=== PATIENT | male | born 1985 | race Hispanic/Latino ===

== ENCOUNTER 2018-01-17 14:41 | Emergency (ER) | payer OTHER ==
[2018-01-17] MEDS ORDERED: Emtricitabine-Tenofovir 200 mg-300 mg Tab PO STA (14:43)
--- NOTE | 2018-01-17 14:51 | ED PDOC ---
Arrival/HPI - General Time Seen by Provider: 01/17/18 14:42 Historian: Patient - History of Present Illness Narrative History of Present Illness (Text): 01/17/18 15:32 32 yo M presents to the ER for needlestick injury to the L 2nd digit which occurred at 12pm today. 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 Reports he irrigated with wound with peroxide, there was minimal bleeding. Otherwise denies any numbness, decrease in ROM, or any other injury. Patient has no other complaints. Past Medical History - Infectious Disease Hx of Infectious Diseases: None - Psychiatric Hx Substance Use: No Family/Social History Family/Social History: Unknown Family HX Smoking Status: Never Smoked Hx Alcohol Use: No Hx Substance Use: No Allergies/Home Meds Allergies/Adverse Reactions: Allergies Penicillins Allergy (Verified 04/20/17 11:57) ANAPHYLAXIS Review of Systems - Review of Systems Constitutional: absent: Fatigue, Fevers Musculoskeletal: absent: Arthralgias, Back Pain, Neck Pain Skin: Other (neelestick injury to finger). absent: Rash, Pruritis, Skin Lesions Physical Exam Vital Signs Temp Pulse Resp BP Pulse Ox 01/17/18 15:24 98 01/17/18 14:45 98.7 F 78 18 117/84 98 Temperature: Afebrile Blood Pressure: Normal Pulse: Regular Respiratory Rate: Normal Appearance: Positive for: Well-Appearing, Non-Toxic, Comfortable Pain Distress: None Mental Status: Positive for: Alert and Oriented X 3 - Systems Exam Upper Extremity: Present: Normal Inspection, Normal ROM, NORMAL PULSES, Neurovascularly Intact, Capillary Refill < 2s, Norm 2-Pt Discrimination, Other ( no puncture wound). No: Edema, Tenderness, Swelling, Erythema, Temperature Abnormalties, Deformity Neurological: Present: GCS=15, CN II-XII Intact, Speech Normal, Motor Func Grossly Intact, Normal Sensory Function Skin: Present: Warm, Dry, Normal Color. No: Rashes Medical Decision Making ED Course and Treatment: 01/17/18 14:47 Labs ordered. Patient medicated with truvada PO and isentress PO. Given Rx for both medications for PEP, which patient agreed to take. Advised to follow up with employee health. - Medication Orders Current Medication Orders: Discontinued Medications Emtricitabine/Tenofovir (Truvada 200 Mg-300 Mg) 1 tab PO STAT STA PRN Reason: Protocol Stop: 01/17/18 14:44 Last Admin: 01/17/18 15:19 Dose: 1 tab Raltegravir (Isentress) 400 mg PO STAT STA PRN Reason: Protocol Stop: 01/17/18 14:44 Last Admin: 01/17/18 15:19 Dose: 400 mg - PA / MED SPA MANAGER / Resident Statement MD/DO has reviewed & agrees with the documentation as recorded. Disposition/Present on Arrival - Present on Arrival Any Indicators Present on Arrival: No History of DVT/PE: No History of Uncontrolled Diabetes: No Urinary Catheter: No History of Decub. Ulcer: No History Surgical Site Infection Following: None - Disposition Have Diagnosis and Disposition been Completed?: Yes Diagnosis: Needlestick injury of finger Disposition: HOME/ ROUTINE Disposition Time: 15:00 Patient Plan: Discharge Patient Problems: Current Active Problems Problem Status Onset Needlestick injury of finger Acute Condition: GOOD Additional Instructions: Follow up with employee health. Take medications as prescribed. Prescriptions: Emtricitabine/Tenofovir Diso [Truvada 200 MG-300 MG] 1 tab PO DAILY #28 tab Raltegravir Potassium [Isentress] 400 mg PO BID #56 tab
[2018-01-17 15:12] VITALS: BP 117/84; PULSE 78; RESP 18; TEMP 98.7; O2SAT 98
[2018-01-17 15:30] LABS: BASO # 0.02 K/mm3 (0.0-2.0); BASO % 0.2 % (0.0-3.0); EOS # 0.2 (0.0-0.7); EOS % 1.8 % (1.5-5.0); GRAN # 6.18 (1.4-6.5); GRAN % 67.2 % (50.0-68.0); HEMOGLOBIN 14.7 g/dL (14.0-18.0); LYMPH # 2.5 (1.2-3.4); LYMPH % 27.1 % (22.0-35.0); MEAN CELL VOLUME 85.5 fl (80.0-105.0); MEAN CORPUSCULAR HEMOGLOBIN 29.7 pg (25.0-35.0); MEAN CORPUSCULAR HGB CONC 34.8 g/dl (31.0-37.0); MONO # 0.3 (0.1-0.6); MONO % 3.7 % (1.0-6.0); RBC 4.95 10^6/uL (3.5-6.1); RED CELL DISTRIBUTION WIDTH 13.5 % (11.5-14.5); WHITE BLOOD COUNT 9.2 10^3/ul (4.5-11.0)
[2018-01-17 15:37] LABS: ALB/GLOB RATIO 1.4 (1.1-1.8); ALBUMIN 4.6 g/dL (3.0-4.8); ALT/SGPT 47 U/L (7-56); AMYLASE 98 U/L (35-125); AST/SGOT 26 U/L (17-59); BLOOD UREA NITROGEN 17 mg/dL (7-21); CALCIUM 9.1 mg/dL (8.4-10.5); GFR AFRICAN-AMERICAN > 60; GFR NON-AFRICAN AMERICAN > 60
[2018-01-17 21:31] LABS: HEPATITIS B SURFACE AG Negative (NEGATIVE)
[2018-01-17 21:37] LABS: HEPATITIS A IGM NEGATIVE (NEGATIVE); HEPATITIS B CORE AB NEGATIVE (NEGATIVE)
[2018-01-17 21:48] LABS: HEPATITIS C ANTIBODY NEGATIVE (NEGATIVE)
== END 2018-01-17 15:40 | disposition home or self-care (01) ==
LOC: ED 14:41
DX: S69.92XA Unspecified injury of left wrist, hand and finger(s), initial encounter (principal); W46.0XXA Contact with hypodermic needle, initial encounter; Y99.0 Civilian activity done for income or pay